=== PATIENT | female | born 1990 | race Caucasian/White ===

== ENCOUNTER 2016-10-09 16:49 | Emergency (ER) | payer OTHER ==
--- NOTE | 2016-10-09 19:15 | RAD ---
Exam: Two-view chest COMPARISON: None INDICATION: Chest pain, cough for 8 months, vomiting for one week. FINDINGS: PA and lateral views of the chest were obtained. Cardiac silhouette is within normal limits. Lungs are normally inflated. There is subsegmental atelectasis or scarring within the lingula. Lungs are otherwise clear. There is no pleural effusion. Bones of the chest wall within normal limits. IMPRESSION: Subsegmental atelectasis or scarring within the lingula. Otherwise negative two-view chest.
== END 2016-10-09 19:07 | disposition home or self-care (01) ==
LOC: ED 16:49
DX: R05 Cough (principal); J32.9 Chronic sinusitis, unspecified